=== PATIENT | male | born 1975 | race Caucasian/White ===

== ENCOUNTER 2018-01-01 10:35 | Emergency (ER) | payer OTHER ==
[~2018-01-01] VITALS: Ht 160 cm; Wt 109.3 kg
[2018-01-01] MEDS ORDERED: PRINIVIL10 MG (11:02)
== END 2018-01-01 16:47 | disposition home or self-care (01) ==
LOC: ER 10:35
DX: J22 Unspecified acute lower respiratory infection (principal)

== ENCOUNTER → 2018-01-13 | Emergency (ER) | payer OTHER ==
[~2018-01-13] VITALS: Ht 170.2 cm; Wt 136.1 kg
[~2018-01-13] MED LIST: CIPRO500 MG PO; KETOCONAZOLE15 GM TOP; MUPIROCIN15 GM TOP; PRINIVIL10 MG
== END | disposition home or self-care (01) ==
LOC: ER 10:30
DX: L03.115 Cellulitis of right lower limb (principal); S91.341S Puncture wound with foreign body, right foot, sequela; W45.0XXS Nail entering through skin, sequela